=== PATIENT | female | born 1985 | race Caucasian/White ===

== ENCOUNTER 2021-02-18 08:43 | Emergency (ER) | payer SELFPAY ==
[~2021-02-18] VITALS: Ht 162.6 cm; Wt 81.0 kg
[2021-02-18] MEDS ORDERED: predniSONE 10 MG TABLET PO ONE (09:15)
[2021-02-18] MEDS ORDERED: IPRATRPIUM/ALBUTEROL 0.5/2.5MG 3 ML NEBU. NEB ONE (09:15)
--- NOTE | 2021-02-18 09:24 | RAD ---
EXAM: Chest, single view. HISTORY: Cough. COMPARISON: None. FINDINGS: A frontal view of the chest is obtained. There is no infiltrate, pleural effusion or pneumo thorax. The heart is normal in size. IMPRESSION: No acute pulmonary finding. Electronically signed by: Ekta Beach MD (02/18/2021 9:22 AM) [id number]
--- NOTE | 2021-02-18 09:24 | PHYS DOC ---
Past Medical History Past Medical History: Bronchitis Additional Past Medical Histor: prediabetes Past Surgical History: No Surgical History Smoking Status: Never Smoker Alcohol Use: Occasionally General Adult EDM: Chief Complaint: FLU SYMPTOM HPI: HPI: Patient is a 35 year old female with history of recurrent bronchitis who presents with cough, sore throat, shortness of breath/wheezing, and right ear pain. Symptoms started 2 weeks ago with cough and have persistently progressed. She had negative Covid testing approximately a week ago. She is not vaccinated for Covid. Denies Covid contacts. Chest is slightly uncomfortable with deep breaths or with coughing. Described as tightness. Feels very similar to previous episodes of bronchitis which have been improved with albuterol and steroids. Denies fever/chills, lower extremity edema, recent surgery/immobilization. Review of Systems: Review of Systems: Constitutional: Denies fever or chills. [] Eyes: Denies change in visual acuity. [] HENT: Reports nasal congestion and sore throat and right ear pain. [] Respiratory: Reports cough, shortness of breath, wheezing.. [] Cardiovascular: Denies chest pain or edema. [] GI: Denies abdominal pain, nausea, vomiting, bloody stools or diarrhea. [] : Denies dysuria. [] Musculoskeletal: Denies back pain or joint pain. [] Integument: Denies rash. [] Neurologic: Denies headache, focal weakness or sensory changes. [] Endocrine: Denies polyuria or polydipsia. [] Lymphatic: Denies swollen glands. [] Psychiatric: Denies depression or anxiety. [] Heart Score: C/O Chest Pain: N/A Current Medications: Current Medications Medications (Trade) Dose Ordered Sig/Casey Start Time Stop Time Status Last Admin Dose Admin Albuterol/ Ipratropium (Duoneb) 3 ml 1X ONCE 02/18/21 09:15 02/18/21 09:16 DC Prednisone (Prednisone) 50 mg 1X ONCE 02/18/21 09:15 02/18/21 09:16 DC Allergies: Allergies: Allergies Coded Allergies Type Severity Reaction Last Updated Verified Sulfa (Sulfonamide Antibiotics) Allergy Intermediate 02/18/21 Yes amoxicillin Allergy Intermediate 02/18/21 Yes clavulanic acid Allergy Intermediate 02/18/21 Yes Physical Exam: PE: Constitutional: Well developed, well nourished, no acute distress, non-toxic appearance. [] HENT: Posterior oropharynx is erythematous, uvula midline, no peritonsillar fullness. Normal range of motion of the neck. Nasal congestion present. Right TM with serous effusion, not bulging, not erythematous. External ear canals normal. Left TM normal. Eyes: conjunctiva normal, no discharge. [] Neck: Normal range of motion, no tenderness, supple, no stridor. [] Cardiovascular: Tachycardic and regular. Lungs & Thorax: Expiratory wheezes noted bilaterally. Slight tachypnea. No distress. Skin: Warm, dry, no erythema, no rash. [] Extremities: No lower extremity edema, redness. Warm, well perfused. [] Neurologic: Alert and oriented X 3, normal motor function, normal sensory function, no focal deficits noted. [] Psychologic: Affect normal, judgement normal Current Patient Data: Vital Signs: Vital Signs Date Time Temp Pulse Resp B/P (MAP) Pulse Ox O2 Delivery O2 Flow Rate FiO2 02/18/21 08:50 98.8 100 20 150/69 (96) 94 Room Air 98.8 EKG: EKG: [] Radiology/Procedures: Radiology/Procedures: [] Impression: [facility] [address] [place], [place] [id number] IMAGING REPORT Signed PATIENT: DAMION WALSH AACCOUNT: [id number] : 1985 LOCATION: ER AGE: 35 SEX: F EXAM STATUS: PRE ER ORD. PHYSICIAN: BERTRAM WISEMAN MD REASON: cough, sob, wheezing PROCEDURE: CHEST AP ONLY EXAM: Chest, single view. HISTORY: Cough. COMPARISON: None. FINDINGS: A frontal view of the chest is obtained. There is no infiltrate, pleural effusion or pneumothorax. The heart is normal in size. IMPRESSION: No acute pulmonary finding. Electronically signed by: Ekta Zepeda MD (02/18/2021 9:22 AM) [id number] DICTATED and SIGNED BY: EKTA ZEPEDA MD DATE: 02/18/21 [id number] Course & Med Decision Making: Course & Med Decision Making Pertinent Labs and Imaging studies reviewed. (See chart for details) Patient a 35-year-old female with history of pre-DM, recurrent bronchitis who presents with 2 weeks of cough, congestion, wheezing, and shortness of breath. On arrival is afebrile, slightly tachycardic to 110, BP stable. Satting 96+ percent on room air. Wheezes noted on auscultatory exam concerning for recurrent bronchitis. Given duo nebs and steroids in the ED. Chest x-ray, electrolytes, Covid and influenza testing pending. 923 CXR clear. Covid and Flu rapid swabs are negative. Awaiting [facility] for final disposition. 954 Will be treated with prednisone 5 day course and home albuterol inhaler. She does have mild persistent tachycardia, however, this is following albuterol inhaler. She is non-toxic and I feel she is safe for outpatient management of her acute bronchitis. 1026 [place] Disclaimer: Dragchristi Disclaimer: This electronic medical record was generated, in whole or in part, using a voice recognition dictation system. Departure Departure Impression: Primary Impression: Acute bronchitis Disposition: HOME / SELF CARE / HOMELESS Condition: STABLE Referrals: FALLON KHALIL MD (PCP) Schedule follow-up appointment if your symptoms not improve over the next week. Patient Instructions: Acute Bronchitis Scripts Albuterol Sulfate (Proair Hfa) 8.5 Gm Hfa.aer.ad 2 PUFF IH PRN Q4-6HRS PRN for wheezing for 21 Days, #1 INHALER 0 Refills Prov: BERTRAM WISEMAN MD 02/18/21 Prednisone (PREDNISONE) 50 Mg Tablet 1 TAB PO DAILY, #5 TAB Prov: BERTRAM WISEMAN MD 02/18/21 BERTRAM WISEMAN MD Feb 18, 2021 09:24
[2021-02-18 09:30] VITALS: BP 128/87
[2021-02-18 09:36] LABS: INFLUENZA A PATIENT NEGATIVE (NEGATIVE); INFLUENZA B PATIENT NEGATIVE (NEGATIVE)
[2021-02-18 09:49] LABS: BASO # 0.1 x10^3/uL (0.0-0.2); BASO % 1 % (0-3); EOS # 0.1 x10^3/uL (0.0-0.7); EOS % 1 % (0-3); HEMATOCRIT 40.9 % (36.0-47.0); LYMPH # 1.9 x10^3/uL (1.0-4.8); LYMPH % 16 % (24-48); MEAN CORPUSCULAR HEMOGLOBIN 28 pg (25-35); MEAN CORPUSCULAR HGB CONC 34 g/dL (31-37); MEAN CORPUSCULAR VOLUME 83 fL (79-100); MONO # 0.9 x10^3/uL (0.0-1.1); MONO % 8 % (0-9); NEUT % 75 % (31-73); PLATELET COUNT 343 x10^3/uL (140-400); RED BLOOD COUNT 4.95 x10^6/uL (3.50-5.40); RED CELL DISTRIBUTION WIDTH 13.3 % (11.5-14.5); WHITE BLOOD COUNT 11.9 x10^3/uL (4.0-11.0)
[2021-02-18 10:02] LABS: CALCIUM 9.2 mg/dL (8.5-10.1); CREATININE 0.7 mg/dL (0.6-1.0); GFR 96.4; POTASSIUM 4.1 mmol/L (3.5-5.1)
[2021-02-18] MEDS ORDERED: PRED50TA PO ×2 (10:28→10:34)
[2021-02-18] MEDS ORDERED: ALBU2.5V8 IH ×2 (10:28→10:34)
[2021-02-18] MEDS ORDERED: BENZ-8 PO (10:34)
--- NOTE | 2021-02-20 10:29 | NUR ---
IP: Attempted to contact pt concerning covid results. No answer, phone not accepting calls.
== END 2021-02-18 10:40 | disposition home or self-care (01) ==
LOC: ER 08:43
DX: J20.9 Acute bronchitis, unspecified (principal); Z88.1 Allergy status to other antibiotic agents; Z88.2 Allergy status to sulfonamides; Z88.8 Allergy status to other drugs, medicaments and biological substances
CPT/HCPCS: 36415; 71045; 80048; 85025; 87426; 87804; 94640; 99284; J7512; U0003

== ENCOUNTER 2021-07-10 14:26 | Emergency (ER) | payer OTHER ==
[~2021-07-10] VITALS: Ht 165.1 cm; Wt 80.7 kg
[~2021-07-10 14:26] MED LIST: ALBU2.5V8 IH; BENZ-8 PO; PRED50TA PO
[2021-07-10 14:40] VITALS: BP 127/66
--- NOTE | 2021-07-10 14:57 | PHYS DOC ---
Past Medical History Past Medical History: Bronchitis Additional Past Medical Histor: prediabetes Past Surgical History: No Surgical History Smoking Status: Never Smoker Alcohol Use: Occasionally General Adult EDM: Chief Complaint: SHORTNESS OF BREATH HPI: HPI: Patient is a 35 year old female current smoker presenting to the ED today complaining of cough and shortness of breath, symptoms of been going on for 2 weeks. Denies any fever. Denies any chest pain. Review of Systems: Review of Systems: Constitutional: Denies fever or chills. [] Eyes: Denies change in visual acuity. [] HENT: Denies nasal congestion or sore throat. [] Respiratory: Reports cough and shortness of breath. [] Cardiovascular: Denies chest pain or edema. [] GI: Denies abdominal pain, nausea, vomiting, bloody stools or diarrhea. [] : Denies dysuria. [] Musculoskeletal: Denies back pain or joint pain. [] Integument: Denies rash. [] Neurologic: Denies headache, focal weakness or sensory changes. [] Psychiatric: Denies depression or anxiety. [] Heart Score: C/O Chest Pain: N/A Risk Factors: Risk Factors: DM, Current or recent (<one month) smoker, HTN, HLP, family history of CAD, obesity. Risk Scores: Score 0 - 3: 2.5% MACE over next 6 weeks - Discharge Home Score 4 - 6: 20.3% MACE over next 6 weeks - Admit for Clinical Observation Score 7 - 10: 72.7% MACE over next 6 weeks - Early Invasive Strategies Allergies: Allergies: Allergies Coded Allergies Type Severity Reaction Last Updated Verified Sulfa (Sulfonamide Antibiotics) Allergy Intermediate 07/10/21 Yes amoxicillin Allergy Intermediate 07/10/21 Yes clavulanic acid Allergy Intermediate 07/10/21 Yes Physical Exam: PE: Constitutional: Well developed, well nourished, no acute distress, non-toxic appearance. [] HENT: Normocephalic, atraumatic, bilateral external ears normal, oropharynx moist, no oral exudates, nose normal. [] Eyes: PERRLA, EOMI, conjunctiva normal, no discharge. [] Neck: Normal range of motion, no tenderness, supple, no stridor. [] Cardiovascular:Heart rate regular rhythm, no murmur [] Lungs & Thorax: Bilateral breath sounds clear to auscultation [] Abdomen: Bowel sounds normal, soft, no tenderness, no masses, no pulsatile masses. [] Skin: Warm, dry, no erythema, no rash. [] Back: No tenderness, no CVA tenderness. [] Extremities: No tenderness, no cyanosis, no clubbing, ROM intact, no edema. [] Neurologic: Alert and oriented X 3, normal motor function, normal sensory function, no focal deficits noted. [] Psychologic: Affect normal, judgement normal, mood normal. [] Current Patient Data: Vital Signs: Vital Signs Date Time Temp Pulse Resp B/P (MAP) Pulse Ox O2 Delivery O2 Flow Rate FiO2 07/10/21 14:40 100.0 105 22 127/66 (86) 97 100.0 EKG: EKG: [] Radiology/Procedures: Radiology/Procedures: []PROCEDURE: PORTABLE CHEST 1V AP chest. HISTORY: Cough AP view of the chest was compared with a study from January 2021. Lungs are free of infiltrates. There is no pneumothorax or pleural effusion. Heart is normal in size. IMPRESSION: 1. No acute infiltrates. Electronically signed by: Maxime Cotton MD (07/10/2021 3:41 PM) [facility] DICTATED and SIGNED BY: MAXIME COTTON MD DATE: 07/10/21 [id number] Course & Med Decision Making: Course & Med Decision Making Pertinent Labs and Imaging studies reviewed. (See chart for details) This a 35-year-old female patient presented to the ED today with complaints of cough and shortness of breath, symptoms for 2 weeks. Running a slight t emperature at 100.0. Chest x-ray interpreted by radiologist as negative for any acute findings, negative rapid Covid test, negative influenza a and B test. Discharge to home. Tylenol or Motrin for pain or fever. Instructed to consider smoking cessation. Follow-up with PCP in 1 week Tutu Disclaimer: [place]u Disclaimer: This electronic medical record was generated, in whole or in part, using a voice recognition dictation system. Departure Departure Impression: Primary Impression: Acute bronchitis Qualified Codes: J20.9 - Acute bronchitis, unspecified Additional Impressions: Fever Qualified Codes: R50.9 - Fever, unspecified Smoking addiction Disposition: HOME / SELF CARE / HOMELESS Condition: STABLE Referrals: NO PCP (PCP) follow up with your doctor in one week Patient Instructions: Acute Bronchitis Additional Instructions: You were evaluated in the emergency room, your chest x-ray is negative for pneumonia. Your rapid Covid test and rapid influenza test are negative, you have a pending PCR COVID test. Use the prescribed medications as ordered. Follow-up with your doctor in 1 to 2 weeks. Consider smoking cessation Scripts Benzonatate (BENZONATATE) 100 Mg Capsule 1 CAP PO TID, #30 CAP Prov: ABBY JOYCE APRN 07/10/21 Albuterol Sulfate (Proair Hfa) 8.5 Gm Hfa.aer.ad 2 PUFF IH PRN Q4-6HRS PRN for wheezing for 21 Days, #1 INHALER 0 Refills Prov: ABBY JOYCE APRN 07/10/21 Prednisone (PREDNISONE) 50 Mg Tablet 1 TAB PO DAILY, #5 TAB Prov: ABBY JOYCE APRN 07/10/21 ABBY JOYCE APRN Jul 10, 2021 14:57
[2021-07-10] MEDS ORDERED: MORPHINE SULFATE 4 MG/ML INJ. IV/SQ PRN (15:15)
--- NOTE | 2021-07-10 15:43 | RAD ---
AP chest. HISTORY: Cough AP view of the chest was compared with a study from January 2021. Lungs are free of infiltrates. The re is no pneumothorax or pleural effusion. Heart is normal in size. IMPRESSION: 1. No acute infiltrates. Electronically signed by: Dimitrios Kaur MD (07/10/2021 3:41 PM) [facility]
[2021-07-10 16:01] LABS: INFLUENZA A PATIENT NEGATIVE (NEGATIVE); INFLUENZA B PATIENT NEGATIVE (NEGATIVE)
[2021-07-10] MEDS ORDERED: ALBU2.5V8 IH (16:20)
[2021-07-10] MEDS ORDERED: PRED50TA PO (16:20)
[2021-07-10] MEDS ORDERED: BENZ-8 PO (16:20)
--- NOTE | 2021-07-11 08:43 | EKG ---
[facility] [address] [place] [address] Test Date: 2021-07-10 Test Time: 15:09:59 Pat Name: DAMION WALSH Department: Room: Gender: F [employer]: : 1985 Requested By: ABBY JOYCE Order Number: [id number] Reading MD: [place] Measurements Intervals [place] Rate: 98 P: 56 MS: 138 QRS: 61 QRSD: 72 T: 17 QT: 316 QTc: 405 Interpretive Statements SINUS RHYTHM NORMAL ECG RI6.02 No previous ECG available for comparison Electronically Signed On 07-12-2021 13:27:23 CDT by [place]
== END 2021-07-10 16:29 | disposition home or self-care (01) ==
LOC: ER 14:26
DX: J20.9 Acute bronchitis, unspecified (principal); R50.9 Fever, unspecified; Z20.822 Contact with and (suspected) exposure to COVID-19; F17.200 Nicotine dependence, unspecified, uncomplicated; Z88.1 Allergy status to other antibiotic agents; Z88.2 Allergy status to sulfonamides; Z88.8 Allergy status to other drugs, medicaments and biological substances
CPT/HCPCS: 71045; 87426; 87428; 93005; 99285; C9803; U0003